=== PATIENT | female | born 1980 | race Caucasian/White ===

== ENCOUNTER 2024-09-27 11:35 | Outpatient (CLI) | payer BC, SELFPAY ==
--- NOTE | ~2024-09-27 | MR_ITS ---
MRI of the lumbar spine Clinical History: Back pain Technique: Axial T2-weighted images, and sagittal T1-weighted, T2-weighted, and T2 fat-sat images wer e acquired. Findings: There is no fracture or subluxation of the lumbar spine. Vertebral bodies maintain normal h eight and alignment. No focal bone marrow signal abnormality seen. Mild diffuse hypointense T1 marrow signal could reflect underlying anemia/red marrow conversion. At L1-L2 and L2-L3, there is no disc bulge or herniation. There is mild to moderate facet hypertrophy levels. No spinal canal stenosis or neural foraminal narrowing at these levels. At L3-L4, there is moderate degenerative disc narrowing with mild disc bulge. There is moderate to ad vanced facet arthropathy. No central canal stenosis. There is moderate right neural foraminal narrowi ng. Left neural foramen preserved. At L4-L5, there is no significant disc bulge or herniation. There is mild facet hypertrophy. No centr al canal stenosis or neural foraminal narrowing. At L5-S1, there is no disc bulge or herniation. There is minimal facet hypertrophy. No spinal canal s tenosis or neural foraminal narrowing. Paravertebral soft tissues are unremarkable. Impression: Mild degenerative spondylosis at L3-L4, as detailed above, with moderate right neural foraminal narro wing at this level. Reviewed, dictated and finalized at [facility]. Impression: Mild degenerative spondylosis at L3-L4, as detailed above, with moderate right neural foraminal narrowing at this level.
== END 2024-09-27 11:36 | disposition home or self-care (01) ==
LOC: MICIMG 11:37
PROVIDERS: PCP Physician Assistant Medical; Visit Provider Physician Assistant Medical
DX: M47.816 Spondylosis without myelopathy or radiculopathy, lumbar region (principal); M48.061 Spinal stenosis, lumbar region without neurogenic claudication
CPT/HCPCS: 72148